=== PATIENT | male | born 1945 | race Caucasian/White ===

== ENCOUNTER 2017-12-18 05:30 | Inpatient (IN) | payer MEDICARE, OTHER ==
[2017-12-10 14:20] LABS: BASOPHILS % (AUTO) 0.5 % (0-1); EOSINOPHILS # (AUTO) 0.2 X10'3 (0-0.9); EOSINOPHILS % (AUTO) 2.8 % (0-6); LYMPHOCYTES # (AUTO) 1.5 X10'3 (1.1-4.8); LYMPHOCYTES % (AUTO) 19.5 % (21-51); MEAN CORPUSCULAR HEMOGLOBIN 32.6 PG (27.0-31.0); MEAN CORPUSCULAR HGB CONC 33.5 % (33.0-36.5); MEAN CORPUSCULAR VOLUME 97.3 FL (78-98); MEAN PLATELET VOLUME 8.1 FL (7.4-10.4); MONOCYTES # (AUTO) 0.6 X10'3 (0-0.9); NEUTROPHILS # (AUTO) 5.3 X10'3 (1.8-7.7); NEUTROPHILS % (AUTO) 69.2 % (42-75); PRE OP HEMATOCRIT 45.6 % (42.0-52.0); PRE OP HEMOGLOBIN 15.3 g/dL (14.0-17.9); PRE OP PLATELET COUNT 160 X10'3 (140-440); RED BLOOD COUNT 4.68 X10'6 (4.70-6.10); RED CELL DISTRIBUTION WIDTH 14.4 % (11.5-14.5)
[2017-12-10 14:22] LABS: CLARITY,URINE CLEAR (Clear); COLOR,URINE YELLOW (Yellow); GLUCOSE, URINE NEGATIVE (Neg); KETONES,URINE NEGATIVE (Neg); LEUKOCYTE ESTERASE ,URINE NEGATIVE (Neg); NITRITES, URINE NEGATIVE (Neg); OCCULT BLOOD,URINE NEGATIVE (Neg); PH,URINE 5.5 (4.8-8.0); PROTEIN,URINE NEGATIVE (Neg); UROBILINOGEN,URINE 0.2 E.U/dL (0.2-1.0)
[2017-12-10 14:24] LABS: UA COLLECTION TYPE CLN CATCH MIDSTREAM
[2017-12-10 14:31] LABS: PRE OP INR 1.1 INR; PRE OP PROTIME 11.2 SECONDS (9.0-12.0)
[2017-12-10 14:43] LABS: ALBUMIN 3.4 G/DL (3.4-5.0); ALBUMIN/GLOBULIN RATIO 1.1 (1.1-1.5); ALKALINE PHOSPHATASE 47 IU/L (46-116); BLOOD UREA NITROGEN 18 MG/DL (7-18); BUN/CREATININE RATIO 14.5 (5.4-32.0); CALCIUM 8.7 MG/DL (8.5-10.1); CHLORIDE 107 MMOL/L (99-107); CREATININE 1.24 MG/DL (0.60-1.10); PRE OP ALT 23 U/L (30-65); PRE OP ANION GAP 5 (8-16); PRE OP AST 10 U/L (10-37); PRE OP BILIRUB, TOTAL 0.4 MG/DL (0.0-1.0); PRE OP GLUCOSE 102 MG/DL (70-104); PRE OP POTASSIUM 3.7 MMOL/L (3.4-5.1); PRE OP SODIUM 138 MMOL/L (135-145); TOTAL CARBON DIOXIDE 26.5 MMOL/L (24-32); TOTAL PROTEIN 6.5 G/DL (6.4-8.2); eGFR 58 ML/MIN
[2017-12-18] VITALS (18 sets, daily range): BP systolic 119–155; BP diastolic 68–102
[~2017-12-18] VITALS: Ht 188 cm; Wt 133.8 kg
[~2017-12-18 05:30] MED LIST: ALPR-624 PO; CHOL10002 PO; DABI150C PO; DOCUMENT DATE & TIME OF BETA-BLOCKER PO ONE; FLUO20CA39 PO; LISI40TA4 PO; LOP25T PO; NIAC1CAP PO; PRAZ5CAP2 PO; SYN0.0125T PO; TRAZ-218 PO; ZOLP10TA5 PO; ceFAZolin inj. 3,000 MG in normal saline 100ml IV soln 100 ML IV ONE; famotidine 20mg tablet PO ONE; ringers solution, lacted 1,000 ML IV SCH; vancomycin inj 1,500 MG in normal saline 300ml IV soln IV ONE
[2017-12-18] MEDS ORDERED: LIDOcaine 1% (10mg/ml) 2ml vial ONE (05:52)
[2017-12-18] MEDS ORDERED: vancomycin 1,000mg inj ONE (06:51)
[2017-12-18] MEDS ORDERED: ketorolac trometh. 30mg/ml inj. ONE (06:51)
[2017-12-18] MEDS ORDERED: ROPIVAcaine 0.5% (5mg/ml) 30ml vial ONE ×3 (06:52→12:21)
[2017-12-18] MEDS ORDERED: TRANEXAMIC ACID IV ONE ×4 (07:35)
[2017-12-18] MEDS ORDERED: NORMAL SALINE IV ONE ×4 (07:35)
[2017-12-18] MEDS ORDERED: cloNIDine hcl/PF 100mcg/ml inj ONE (08:56)
[2017-12-18] MEDS ORDERED: fentaNYL/PF 50MCG/1 ML 2ML syringe ONE (09:05)
[2017-12-18] MEDS ORDERED: sevoflurane 250ml liquid IH ONE (09:06)
[2017-12-18] MEDS ORDERED: MIDAZolam 5mg/5ml vial ONE (09:06)
[2017-12-18] MEDS ORDERED: propofol inj 20 ML IV ONE (09:28)
[2017-12-18] MEDS ORDERED: dexamethasone sod phosphate 4mg/ml inj. ONE (09:28)
[2017-12-18] MEDS ORDERED: ringers solution, lacted 1,000 ML IV SCH (09:37)
[2017-12-18] MEDS ORDERED: meperidine/PF 25mg/ml syringe IV PRN ×3 (09:40)
[2017-12-18] MEDS ORDERED: proCHLORperazine 10 MG/2 ml inj IV PRN (09:40)
[2017-12-18] MEDS ORDERED: ondansetron/PF 4mg/2ml inj IV PRN ×2 (09:40→11:15)
[2017-12-18] MEDS ORDERED: morphine 4 MG/ML inj SYRINge IV PRN ×2 (09:40)
[2017-12-18] MEDS ORDERED: ondansetron/PF 4mg/2ml inj ONE (11:04)
[2017-12-18] MEDS ORDERED: HYDROmorphone inj. 0.5 MG/0.5 ML DISP.SYRIN IV PRN ×2 (11:15)
[2017-12-18] MEDS ORDERED: acetaminophen 325mg tablet PO PRN (11:15)
[2017-12-18] MEDS ORDERED: magnesium hydroxide 30ml (MOM) UD suspension PO PRN (11:15)
[2017-12-18] MEDS ORDERED: diphenhydrAMINE 25mg capsule PO PRN ×2 (11:15)
[2017-12-18] MEDS ORDERED: oxyCODONE IR 5mg (immed. release) tablet PO PRN ×2 (11:15)
[2017-12-18] MEDS ORDERED: bisacodyl 10mg suppository rectal RC PRN (11:15)
[2017-12-18] MEDS: gabapentin 300mg capsule PO SCH ×2 (13:00→21:00)
[2017-12-18] MEDS: ALPRAZolam 0.5mg tablet PO SCH ×2 (13:00→21:42)
[2017-12-18] MEDS: ketorolac tromethamine 15mg/ml inj. IV SCH ×2 (13:33→19:43)
[2017-12-18] MEDS: acetaminophen 325mg tablet PO SCH ×2 (13:33→19:43)
[2017-12-18] MEDS: ceFAZolin 1GM/D5W- ADD-VANTAGE 50 ML IV SCH ×2 (15:52→23:49)
[2017-12-18] MEDS: potassium cl 20mEq in 1/2 NS 1,000 ML IV SCH ×2 (15:52→19:12)
[2017-12-18] MEDS: dabigatran 150mg capsule PO SCH (19:43)
[2017-12-18] MEDS: metoprolol tartrate 25mg tablet PO SCH (19:44)
[2017-12-18] MEDS ORDERED: vancomycin/NS 1 GM ADD-VANTAGE 250 ML IV SCH (20:00)
[2017-12-18] MEDS ORDERED: prazosin 1mg capsule PO SCH (21:00)
[2017-12-18] MEDS ORDERED: traZODone 50mg tablet PO SCH (21:00)
[2017-12-18] MEDS ORDERED: sennosides 8.6mg tablet PO SCH (21:00)
[2017-12-18] MEDS ORDERED: zolpidem 5mg tablet PO SCH (21:00)
[2017-12-18] MEDS ORDERED: FLUoxetine 20mg capsule PO SCH (21:00)
[2017-12-19 02:00] VITALS: BP 117/70
[2017-12-19] MEDS: acetaminophen 325mg tablet PO SCH ×2 (02:30→07:35)
[2017-12-19] MEDS: ketorolac tromethamine 15mg/ml inj. IV SCH ×2 (02:30→07:34)
[2017-12-19] MEDS: potassium cl 20mEq in 1/2 NS 1,000 ML IV SCH ×2 (03:56→11:12)
[2017-12-19 07:02] LABS: BASOPHILS % (AUTO) 0.1 % (0-1); EOSINOPHILS # (AUTO) 0.1 X10'3 (0-0.9); HEMATOCRIT 40.2 % (42.0-52.0); HEMOGLOBIN 13.4 g/dl (14.0-17.9); LYMPHOCYTES # (AUTO) 0.6 X10'3 (1.1-4.8); LYMPHOCYTES % (AUTO) 4.9 % (21-51); MEAN CORPUSCULAR HEMOGLOBIN 32.7 PG (27.0-31.0); MEAN CORPUSCULAR HGB CONC 33.4 % (33.0-36.5); MEAN CORPUSCULAR VOLUME 97.7 FL (78-98); MEAN PLATELET VOLUME 8.9 FL (7.4-10.4); MONOCYTES # (AUTO) 0.9 X10'3 (0-0.9); MONOCYTES % (AUTO) 7.5 % (2-12); NEUTROPHILS % (AUTO) 86.5 % (42-75); PLATELET COUNT 139 X10'3 (140-440); RED BLOOD COUNT 4.11 X10'6 (4.70-6.10); RED CELL DISTRIBUTION WIDTH 14.5 % (11.5-14.5); WHITE BLOOD COUNT 11.6 X10'3 (4.5-11.0)
[2017-12-19] MEDS: dabigatran 150mg capsule PO SCH (07:34)
[2017-12-19] MEDS: ALPRAZolam 0.5mg tablet PO SCH (07:34)
[2017-12-19] MEDS: metoprolol tartrate 25mg tablet PO SCH (07:34)
[2017-12-19] MEDS: gabapentin 300mg capsule PO SCH (07:35)
[2017-12-19] MEDS ORDERED: lisinopril 20mg tablet PO SCH (08:00)
[2017-12-19] MEDS ORDERED: vitamin D (cholecalciferol) 1,000 unit tablet PO SCH (08:00)
[2017-12-19] MEDS ORDERED: levoTHYROXINE 125mcg tablet PO SCH (08:00)
[2017-12-19 08:12] LABS: ANION GAP 10 (8-16); CHLORIDE 103 MMOL/L (99-107); POTASSIUM 4.1 MMOL/L (3.5-5.1); SODIUM 135 MMOL/L (135-145)
[2017-12-19] MEDS ORDERED: celeCOXIB 100mg capsule PO SCH (20:00)
[2017-12-20] MEDS ORDERED: acetaminophen 325mg tablet PO PRN (11:15)
== END 2017-12-19 11:50 | disposition home or self-care (01) | DRG 483 ==
LOC: PAS IN 05:30 → EDSTATUS 08:30 → ORTHO 4S 12:15
PROVIDERS: ADMIT Orthopaedic Surgery; ATTEND Orthopaedic Surgery
PROC: 0LS30ZZ Reposition Right Upper Arm Tendon, Open Approach (ICD-10-PCS; 2017-12-18)
PROC: 3E0T3BZ Introduction of Anesthetic Agent into Peripheral Nerves and Plexi, Percutaneous Approach (ICD-10-PCS; 2017-12-18)
PROC: 0RRJ00Z Replacement of Right Shoulder Joint with Reverse Ball and Socket Synthetic Substitute, Open Approach (ICD-10-PCS; principal; 2017-12-18 09:06)
DX: M19.011 Primary osteoarthritis, right shoulder (principal); D62 Acute posthemorrhagic anemia; M75.41 Impingement syndrome of right shoulder; E03.9 Hypothyroidism, unspecified; F41.9 Anxiety disorder, unspecified; I10 Essential (primary) hypertension; I48.91 Unspecified atrial fibrillation; M75.121 Complete rotator cuff tear or rupture of right shoulder, not specified as traumatic; F32.9 Major depressive disorder, single episode, unspecified; M65.9 Synovitis and tenosynovitis, unspecified; E66.01 Morbid (severe) obesity due to excess calories; Z95.0 Presence of cardiac pacemaker; Z79.899 Other long term (current) drug therapy; Z68.37 Body mass index [BMI] 37.0-37.9, adult
CPT/HCPCS: 36415; 80051; 80053; 81003; 84443; 85025; 85610; 85730; 87070; 88304; 93005; 97116; 97162; 97530; A4565; A7000; J0690; J0735; J1100; J1885; J2250; J2405; J2704; J2795; J3010; J3370; J3490; J7030; J7040; J7120

== ENCOUNTER 2018-08-13 05:10 | Inpatient (IN) | payer MEDICARE, OTHER ==
[2018-08-05 17:09] LABS: BASOPHILS # (AUTO) 0.1 X10'3 (0-0.2); EOSINOPHILS # (AUTO) 0.2 X10'3 (0-0.9); EOSINOPHILS % (AUTO) 2.3 % (0-6); LYMPHOCYTES # (AUTO) 1.4 X10'3 (1.1-4.8); LYMPHOCYTES % (AUTO) 18.8 % (21-51); MEAN CORPUSCULAR HEMOGLOBIN 32.7 PG (27.0-31.0); MEAN CORPUSCULAR HGB CONC 33.7 g/dL (33.0-36.5); MEAN CORPUSCULAR VOLUME 97.1 FL (78-98); MEAN PLATELET VOLUME 9.3 FL (7.4-10.4); MONOCYTES # (AUTO) 0.7 X10'3 (0-0.9); MONOCYTES % (AUTO) 9.2 % (2-12); NEUTROPHILS # (AUTO) 5.1 X10'3 (1.8-7.7); NEUTROPHILS % (AUTO) 68.7 % (42-75); PRE OP HEMATOCRIT 44.1 % (42.0-52.0); PRE OP HEMOGLOBIN 14.8 g/dL (14.0-17.9); PRE OP PLATELET COUNT 169 X10'3 (140-440); RED BLOOD COUNT 4.54 X10'6 (4.70-6.10); RED CELL DISTRIBUTION WIDTH 14.4 % (11.5-14.5)
[2018-08-05 17:23] LABS: ALBUMIN 3.6 G/DL (3.4-5.0); ALBUMIN/GLOBULIN RATIO 1.1 (1.1-1.5); ALKALINE PHOSPHATASE 62 IU/L (46-116); BLOOD UREA NITROGEN 21 MG/DL (7-18); BUN/CREATININE RATIO 23.3 (5.4-32.0); CALCIUM 9.2 MG/DL (8.5-10.1); CHLORIDE 106 MMOL/L (99-107); PRE OP ALT 24 U/L (30-65); PRE OP ANION GAP 8 (8-16); PRE OP AST 15 U/L (10-37); PRE OP BILIRUB, TOTAL 0.3 MG/DL (0.0-1.0); PRE OP GLUCOSE 96 MG/DL (70-104); PRE OP POTASSIUM 3.9 MMOL/L (3.4-5.1); PRE OP SODIUM 140 MMOL/L (135-145); TOTAL CARBON DIOXIDE 26.3 MMOL/L (24-32); TOTAL PROTEIN 6.9 G/DL (6.4-8.2); eGFR 83 ML/MIN
[2018-08-05 17:31] LABS: PRE OP INR 1.1 INR; PRE OP PROTIME 11.2 SECONDS (9.0-12.0)
[2018-08-13] VITALS (17 sets, daily range): BP systolic 100–184; BP diastolic 63–139
[~2018-08-13] VITALS: Ht 188 cm; Wt 131.5 kg
[~2018-08-13 05:10] MED LIST changes: +AMLO10TA PO; +CYAN100097 PO; -DOCUMENT DATE & TIME OF BETA-BLOCKER PO ONE; -ceFAZolin inj. 3,000 MG in normal saline 100ml IV soln 100 ML IV ONE; -famotidine 20mg tablet PO ONE; -vancomycin inj 1,500 MG in normal saline 300ml IV soln IV ONE
[2018-08-13] MEDS ORDERED: DOCUMENT DATE & TIME OF BETA-BLOCKER PO ONE (05:30)
[2018-08-13] MEDS ORDERED: vancomycin inj 1,500 MG in normal saline 300ml IV soln IV ONE (05:30)
[2018-08-13] MEDS ORDERED: famotidine 20mg tablet PO ONE (05:30)
[2018-08-13] MEDS ORDERED: ceFAZolin inj. 3,000 MG in normal saline 100ml IV soln 100 ML IV ONE (05:30)
[2018-08-13] MEDS ORDERED: LIDOcaine 1% (10mg/ml) 2ml vial ONE (05:56)
[2018-08-13] MEDS ORDERED: ROPIVAcaine inj 200 MG, ketorolac tromethamine inj. 15 MG in normal saline 100ml IV sol... IU ONE (07:00)
[2018-08-13] MEDS ORDERED: NORMAL SALINE IV ONE ×6 (07:10→08:00)
[2018-08-13] MEDS ORDERED: TRANEXAMIC ACID IV ONE ×6 (07:10→08:00)
[2018-08-13] MEDS ORDERED: LIDOcaine 2% (20mg/ml) 5ml vial ONE ×2 (07:19→07:22)
[2018-08-13] MEDS ORDERED: propofol inj 20 ML IV ONE (07:19)
[2018-08-13] MEDS ORDERED: succinylcholine 20mg/ml inj IV ONE (07:19)
[2018-08-13] MEDS ORDERED: fentaNYL /PF 50mcg/ml 5ml ampule ONE (07:19)
[2018-08-13] MEDS ORDERED: sevoflurane 250ml liquid IH ONE (07:22)
[2018-08-13] MEDS ORDERED: ringers solution, lacted 1,000 ML IV SCH (08:20)
[2018-08-13] MEDS ORDERED: ROPIVAcaine 0.2%/PF PAIN PUMP 550 ML IJ SCH (08:20)
[2018-08-13] MEDS ORDERED: morphine 4 MG/ML inj SYRINge IV PRN ×2 (08:20)
[2018-08-13] MEDS ORDERED: HYDROmorphone inj. 0.5 MG/0.5 ML DISP.SYRIN IV PRN ×3 (08:20→09:50)
[2018-08-13] MEDS ORDERED: ondansetron/PF 4mg/2ml inj IV PRN ×2 (08:20→09:50)
[2018-08-13] MEDS ORDERED: diphenhydrAMINE 25mg capsule PO PRN ×2 (09:50)
[2018-08-13] MEDS ORDERED: oxyCODONE IR 5mg (immed. release) tablet PO PRN ×2 (09:50)
[2018-08-13] MEDS ORDERED: bisacodyl 10mg suppository rectal RC PRN (09:50)
[2018-08-13] MEDS ORDERED: HYDROmorphone 1 mg/ml syringe IV PRN (09:50)
[2018-08-13] MEDS ORDERED: magnesium hydroxide 30ml (MOM) UD suspension PO PRN (09:50)
[2018-08-13] MEDS ORDERED: acetaminophen 325mg tablet PO PRN (09:50)
[2018-08-13] MEDS ORDERED: zolpidem 5mg tablet PO PRN (10:10)
[2018-08-13] MEDS ORDERED: morphine 10mg/ml inj. ONE (10:15)
--- NOTE | 2018-08-13 10:20 | NUR ---
Received from OR via BED, accompanied by Anesthesiologist ELOINA and report given by Anesthesiolgist. PT DROWSY, OXYENATING WELL ON 10 LPM O2 VIA MASK, NO RESP DISTRESS NOTED. NO C/O NAUSEA, VERY MILD KNEE PAIN. 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 CANDI DSG TO RLE, KNEE WRAP AMD POWDER PACK IN PLACE. PEDAL PULSES PALPABLE. NO FLOEY, SCDS ON. VSS.
[2018-08-13] MEDS ORDERED: ondansetron/PF 4mg/2ml inj ONE (10:42)
[2018-08-13] MEDS ORDERED: glycopyrrolate 0.2mg/ml inj ONE (10:42)
[2018-08-13] MEDS ORDERED: rocuronium 10mg/ml inj IV ONE (10:42)
[2018-08-13] MEDS ORDERED: dexamethasone sod phosphate 4mg/ml inj. ONE (10:42)
[2018-08-13] MEDS ORDERED: neostigmine methylsulfate 1 MG/ML 10ml vial ONE (10:42)
[2018-08-13] MEDS ORDERED: ROPIVAcaine 0.5% (5mg/ml) 30ml vial ONE (10:42)
--- NOTE | 2018-08-13 11:50 | NUR ---
Report called to receiving nurse. Transferred via BED Belongings WITH PT. B HEARING AIDES IN EARS, 1 BAG OF CLOTHING. PT STILL HAS LITTLE TO NO C/O PAIN AT TIME OF TRANSFER, MOVING BOTH LOWER EXTREMITIES WELL. VSS. TOLERATING PO FLUIDS WELL. SPOKE WITH THE REP FOR PT PPM, THE BACK UP RATE IS SET FOR 40. IT IS FUNCTIONING IT SHOULD. PT TRANSFERRED TO ORTHO FLOOR IN STABLE CONDITION. Special Issues communicated to receiving nurse.
[2018-08-13] MEDS ORDERED: tranexamic acid inj. 1,300 MG in normal saline 100ml IV soln 100 ML IV ONE (13:03)
[2018-08-13] MEDS ORDERED: acetaminophen 325mg tablet PO SCH (14:00)
[2018-08-13] MEDS: ceFAZolin 1GM/D5W- ADD-VANTAGE 50 ML IV SCH (15:53)
[2018-08-13] MEDS: potassium cl 20mEq in 1/2 NS 1,000 ML IV SCH (15:55)
[2018-08-13] MEDS ORDERED: lisinopril 20mg tablet PO ONE (16:10)
[2018-08-13] MEDS ORDERED: amLODIPine 5mg tablet PO ONE (16:10)
--- NOTE | 2018-08-13 16:13 | NUR ---
I talked to Dr. Torres and he okayed to give patient his morning BP meds he missed for high BP 184/100. Okay to DC Tylenol patient said he can't take it.
--- NOTE | 2018-08-13 18:35 | NUR ---
Patient report given to Luis MICHAEL
--- NOTE | 2018-08-13 19:00 | NUR ---
Patient in room ORTHO 4024. I have received report from Dana MICHAEL and had the opportunity to ask questions and assume patient care.
[2018-08-13] MEDS ORDERED: vancomycin/NS 1 GM ADD-VANTAGE 250 ML IV SCH (20:00)
[2018-08-13] MEDS: metoprolol tartrate 25mg tablet PO SCH (20:11)
[2018-08-13] MEDS: dabigatran 150mg capsule PO SCH (20:12)
[2018-08-13] MEDS: ALPRAZolam 0.5mg tablet PO SCH (20:13)
[2018-08-13] MEDS ORDERED: prazosin 5mg capsule PO SCH (21:00)
[2018-08-13] MEDS ORDERED: FLUoxetine 20mg capsule PO SCH (21:00)
[2018-08-13] MEDS ORDERED: traZODone 50mg tablet PO SCH (21:00)
[2018-08-13] MEDS ORDERED: sennosides 8.6mg tablet PO SCH (21:00)
[2018-08-14] MEDS: potassium cl 20mEq in 1/2 NS 1,000 ML IV SCH ×3 (00:45→07:35)
[2018-08-14] MEDS: ceFAZolin 1GM/D5W- ADD-VANTAGE 50 ML IV SCH (00:45)
[2018-08-14 03:00] VITALS: BP 109/61
--- NOTE | 2018-08-14 05:31 | NUR ---
Pt offered pain medication for morning physical therapy, Pt was adamant that he did not need it.
[2018-08-14 06:00] VITALS: BP 122/75
[2018-08-14 06:15] LABS: BASOPHILS % (AUTO) 0.2 % (0-1); EOSINOPHILS % (AUTO) 0.2 % (0-6); HEMATOCRIT 39.6 % (42.0-52.0); HEMOGLOBIN 13.4 g/dl (14.0-17.9); LYMPHOCYTES # (AUTO) 0.9 X10'3 (1.1-4.8); LYMPHOCYTES % (AUTO) 8.6 % (21-51); MEAN CORPUSCULAR HEMOGLOBIN 32.8 PG (27.0-31.0); MEAN CORPUSCULAR HGB CONC 33.8 g/dL (33.0-36.5); MEAN CORPUSCULAR VOLUME 97.2 FL (78-98); MEAN PLATELET VOLUME 9.2 FL (7.4-10.4); MONOCYTES # (AUTO) 1.2 X10'3 (0-0.9); MONOCYTES % (AUTO) 11.6 % (2-12); NEUTROPHILS # (AUTO) 8.1 X10'3 (1.8-7.7); NEUTROPHILS % (AUTO) 79.4 % (42-75); PLATELET COUNT 155 X10'3 (140-440); RED BLOOD COUNT 4.07 X10'6 (4.70-6.10); RED CELL DISTRIBUTION WIDTH 13.8 % (11.5-14.5); WHITE BLOOD COUNT 10.2 X10'3 (4.5-11.0)
[2018-08-14 06:38] LABS: ANION GAP 9 (8-16); CHLORIDE 105 MMOL/L (99-107); POTASSIUM 3.9 MMOL/L (3.5-5.1); SODIUM 138 MMOL/L (135-145); TOTAL CARBON DIOXIDE 23.7 MMOL/L (24-32)
--- NOTE | 2018-08-14 06:44 | NUR ---
RECEIVED REPORT FROM FERNANDA ENGLAND
[2018-08-14] MEDS ORDERED: levoTHYROXINE 100mcg tablet PO SCH (07:00)
[2018-08-14] MEDS: metoprolol tartrate 25mg tablet PO SCH (07:32)
[2018-08-14] MEDS: ALPRAZolam 0.5mg tablet PO SCH (07:34)
[2018-08-14] MEDS: dabigatran 150mg capsule PO SCH (07:34)
[2018-08-14] MEDS ORDERED: lisinopril 20mg tablet PO SCH (08:00)
[2018-08-14] MEDS ORDERED: vitamin D (cholecalciferol) 1,000 unit tablet PO SCH (08:00)
[2018-08-14] MEDS ORDERED: FLUoxetine 20mg capsule PO SCH (08:00)
[2018-08-14] MEDS ORDERED: cyanocobalamin 500mcg tablet PO SCH (08:00)
[2018-08-14] MEDS ORDERED: amLODIPine 5mg tablet PO SCH (08:00)
[2018-08-14] MEDS ORDERED: aspirin 325mg tablet PO SCH (08:30)
[2018-08-14 10:36] VITALS: BP 129/81
--- NOTE | 2018-08-14 13:00 | NUR ---
I spoke with Dr. Torres okay to discharge patient he is having anxiety related to ptsd, he is stable with physical therapy. Dr. Torres said okay to resume pradaxa, no aspirin needed. Patient taught all discharges instructions and he has pain meds and walker at home. Patient rolled out in wheel chair.
[2018-08-14] MEDS ORDERED: celeCOXIB 100mg capsule PO SCH (20:00)
[2018-08-15] MEDS ORDERED: acetaminophen 325mg tablet PO PRN (09:50)
== END 2018-08-14 13:00 | disposition home or self-care (01) | DRG 470 ==
LOC: PAS IN 05:10 → EDSTATUS 07:30 → ORTHO 4S 12:06
PROVIDERS: ADMIT Orthopaedic Surgery; ATTEND Orthopaedic Surgery
PROC: 8E0Y0CZ Robotic Assisted Procedure of Lower Extremity, Open Approach (ICD-10-PCS; 2018-08-13)
PROC: 8E0YXBZ Computer Assisted Procedure of Lower Extremity (ICD-10-PCS; 2018-08-13)
PROC: 3E0T3BZ Introduction of Anesthetic Agent into Peripheral Nerves and Plexi, Percutaneous Approach (ICD-10-PCS; 2018-08-13)
PROC: 0SRC0J9 Replacement of Right Knee Joint with Synthetic Substitute, Cemented, Open Approach (ICD-10-PCS; principal; 2018-08-13 07:22)
DX: M17.11 Unilateral primary osteoarthritis, right knee (principal); D62 Acute posthemorrhagic anemia; E03.9 Hypothyroidism, unspecified; I10 Essential (primary) hypertension; I48.91 Unspecified atrial fibrillation; F32.9 Major depressive disorder, single episode, unspecified; G47.33 Obstructive sleep apnea (adult) (pediatric)
CPT/HCPCS: 36415; 80051; 80053; 82948; 84443; 85025; 85610; 85730; 87070; 93005; 97110; 97116; 97161; A6455; A7000; C1713; C1776; G0378; J0330; J0690; J1100; J2001; J2270; J2405; J2704; J2710; J2795; J3010; J3370; J3420; J3490; J7030; J7120

== ENCOUNTER 2024-03-14 09:13 | Inpatient (IN) | payer OTHER, MEDICARE ==
[2024-03-07 14:39] LABS: BASOPHILS # (AUTO) 0.1 X10'3 (0-0.2); BASOPHILS % (AUTO) 0.6 % (0-1); EOSINOPHILS # (AUTO) 0.2 X10'3 (0-0.9); EOSINOPHILS % (AUTO) 1.9 % (0-6); LYMPHOCYTES # (AUTO) 1.7 X10'3 (1.1-4.8); LYMPHOCYTES % (AUTO) 14.3 % (21-51); MEAN CORPUSCULAR HEMOGLOBIN 32.4 PG (27.0-31.0); MEAN CORPUSCULAR HGB CONC 32.4 g/dL (33.0-36.5); MEAN CORPUSCULAR VOLUME 99.9 FL (78-98); MEAN PLATELET VOLUME 7.6 FL (7.4-10.4); MONOCYTES % (AUTO) 8.4 % (2-12); NEUTROPHILS # (AUTO) 9.1 X10'3 (1.8-7.7); NEUTROPHILS % (AUTO) 74.8 % (42-75); PRE OP HEMATOCRIT 42.8 % (42.0-52.0); PRE OP HEMOGLOBIN 13.9 g/dL (14.0-17.9); PRE OP PLATELET COUNT 176 X10'3 (140-440); PRE OP WHITE BLOOD COUNT 12.1 10'3 (4.8-10.8); RED BLOOD COUNT 4.28 X10'6 (4.70-6.10); RED CELL DISTRIBUTION WIDTH 14.8 % (11.5-14.5)
[2024-03-07 15:04] LABS: ALBUMIN/GLOBULIN RATIO 0.8 (1.1-1.5); ALKALINE PHOSPHATASE 82 IU/L (46-116); BLOOD UREA NITROGEN 14 MG/DL (7-18); BUN/CREATININE RATIO 14.9 (10.0-20.0); CALCIUM 9.1 MG/DL (8.5-10.1); CHLORIDE 107 MMOL/L (99-107); CREATININE 0.94 MG/DL (0.60-1.10); PRE OP ALT 28 U/L (30-65); PRE OP ANION GAP 7 (8-16); PRE OP AST 15 U/L (10-37); PRE OP BILIRUB, TOTAL 0.4 MG/DL (0.0-1.0); PRE OP GLUCOSE 85 MG/DL (70-104); PRE OP POTASSIUM 3.9 MMOL/L (3.4-5.1); PRE OP SODIUM 142 MMOL/L (135-145); THYROID STIMULATING HORMONE 0.07 ulU/ml (0.34-4.50); TOTAL CARBON DIOXIDE 28.2 MMOL/L (24-32); TOTAL PROTEIN 6.9 G/DL (6.4-8.2); eGFR 78 ML/MIN
[~2024-03-14] VITALS: Ht 188 cm; Wt 160.6 kg
[2024-03-14] VITALS (20 sets, daily range): BP systolic 89–144; BP diastolic 50–80; PULSE 67–99; RESP 10–19; TEMP 97.3–98.8; O2SAT 89–98
[2024-03-14] MEDS: DOCUMENT DATE & TIME OF BETA-BLOCKER PO ONE (05:30)
[2024-03-14] MEDS: Cefazolin 3 GM/100ML NS IVPB 100 ML IV ONE (05:30)
[~2024-03-14 09:13] MED LIST changes: -ALPR-624 PO; +BUSP10TA11 PO; +CALCIUM/VIT D PO; -CHOL10002 PO; +CHOL10008 PO; +CYAN-34 PO; -CYAN100097 PO; +FOLI1TAB27 PO; +FURO20TA4 PO; +LEVO100T PO; +LEVO112C4 PO; -LISI40TA4 PO; -LOP25T PO; +METO50TA17 PO; +MIRT-142 PO; -NIAC1CAP PO; -SYN0.0125T PO; +TIRZ5PEN3 SQ; -TRAZ-218 PO; +TRAZ-251 PO; -ZOLP10TA5 PO; -ringers solution, lacted 1,000 ML IV SCH; +vancomycin 1,500 MG in NS 300ml IV soln IV ONE
[2024-03-14] MEDS: famotidine 20mg tablet PO ONE (10:54)
[2024-03-14] MEDS: tranexamic acid 650mg tablet PO ONE (10:54)
[2024-03-14] MEDS: VANCOMYCIN 1,500MG in normal saline IV soln 300 ML IV ONE (10:55)
[2024-03-14] MEDS: ringers solution, lacted 1,000 ML IV SCH ×2 (10:55→16:55)
[2024-03-14] MEDS ORDERED: cloNIDine hcl/PF 100mcg/ml inj ONE (12:12)
[2024-03-14] MEDS ORDERED: tetracaine 1% (10mg/ml) pres. free inj. ONE (12:28)
[2024-03-14] MEDS ORDERED: tranexamic acid 100mg/ml inj. ONE (12:38)
[2024-03-14] MEDS ORDERED: ketorolac trometh 30MG/ML vial 30 MG/ML VIAL ONE (12:38)
[2024-03-14] MEDS ORDERED: ROPIVAcaine 0.5% (5mg/ml) 30ml vial ONE ×3 (12:39→17:08)
[2024-03-14] MEDS ORDERED: sevoflurane 250ml liquid IH ONE (13:28)
[2024-03-14] MEDS ORDERED: midazolam 1 mg/ML 2ml injection ONE (13:39)
[2024-03-14] MEDS ORDERED: dexamethasone sod phosphate 4mg/ml inj. ONE (14:28)
[2024-03-14] MEDS ORDERED: LIDOcaine 2% (20mg/ml) 5ml vial ONE (14:28)
[2024-03-14] MEDS ORDERED: fentaNYL /PF 50mcg/ml 5ml ampule ONE (14:28)
[2024-03-14] MEDS ORDERED: propofol inj 20 ML IV ONE (14:28)
[2024-03-14] MEDS ORDERED: 0.9 % SODIUM CHLORIDE 10 ML VIAL ONE ×5 (14:28→17:08)
[2024-03-14] MEDS ORDERED: ePHEDrine 50MG/ML INJ. ONE (14:29)
[2024-03-14] MEDS ORDERED: ondansetron/PF 4mg/2ml inj ONE (14:29)
[2024-03-14] MEDS ORDERED: rocuronium 10mg/ml inj IV ONE (14:36)
[2024-03-14 16:25] LABS: APPEARANCE,SYNOVIAL FLUID CLOUDY; COLOR,SYNOVIAL FLUID YELLOW; LYMPHOCYTES,SYNOVIAL FLUID 98 % (0-75); NEUTROPHILS,SYNOVIAL FLUID 2 % (0-25); SYN RBC 530 /CU MM (0); SYN WBC 215 /CU MM (0-200)
[2024-03-14] MEDS: ROPIVAcaine 0.5% (5mg/ml) 30ml vial IJ ONE (16:54)
[2024-03-14] MEDS ORDERED: labetalol 20mg/4ml (5mg/ml) syringe IV PRN (16:55)
[2024-03-14] MEDS ORDERED: hydrALAZINE 20mg/ml inj. IV PRN (16:55)
[2024-03-14] MEDS ORDERED: meperidine/PF 25mg/ml syringe IV PRN (16:55)
[2024-03-14] MEDS ORDERED: morphine 4 MG/ML inj SYRINge IV PRN (16:55)
[2024-03-14] MEDS ORDERED: ondansetron/PF 4mg/2ml inj IV PRN (16:55)
[2024-03-14] MEDS: acetaminophen 1,000mg/100ml IV 100 ML IV ONE (16:55)
[2024-03-14] MEDS ORDERED: proCHLORperazine 10 MG/2 ml inj IV PRN (16:55)
[2024-03-14] MEDS ORDERED: HYDROmorphone/PF 0.2 MG/ML SYRINGE IV PRN ×2 (16:55)
[2024-03-14] MEDS ORDERED: morphine 2 MG/ML inj. syringe IV PRN (16:55)
[2024-03-14] MEDS ORDERED: morphine 10mg/ml inj. ONE (17:14)
[2024-03-14] MEDS ORDERED: sugammadex 200mg/2ml injection IV ONE (17:25)
[2024-03-14] MEDS ORDERED: furosemide 20MG tablet PO PRN (17:30)
[2024-03-14] MEDS ORDERED: HYDROmorphone inj. 0.5 MG/0.5 ML DISP.SYRIN IV PRN (17:30)
[2024-03-14] MEDS ORDERED: magnesium hydroxide 30ml (MOM) UD suspension PO PRN (17:30)
[2024-03-14] MEDS ORDERED: diphenhydrAMINE 25mg capsule PO PRN ×2 (17:30)
[2024-03-14] MEDS ORDERED: oxyCODONE IR 5mg (immed. release) tablet PO PRN (17:30)
[2024-03-14] MEDS ORDERED: naloxone 0.4 mg/ml inj IV PRN (17:30)
[2024-03-14] MEDS ORDERED: acetaminophen 325mg tablet PO PRN (17:30)
[2024-03-14] MEDS ORDERED: bisacodyl 10mg suppository rectal RC PRN (17:30)
[2024-03-14] MEDS ORDERED: glycopyrrolate 0.2mg/ml inj ONE (17:33)
[2024-03-14] MEDS ORDERED: neostigmine methylsulfate 1 MG/ML 10ml vial ONE (17:33)
[2024-03-14] MEDS: VANCOMYCIN 1GM 200ML H20 (PEG) 200 ML IV SCH (21:23)
[2024-03-14] MEDS: cyanocobalamin 500mcg tablet PO SCH (21:24)
[2024-03-14] MEDS: acetaminophen 325mg tablet PO SCH (21:24)
[2024-03-14] MEDS: busPIRone 5mg tablet PO SCH (21:25)
[2024-03-14] MEDS: metoprolol tartrate 50mg tablet PO SCH (21:25)
[2024-03-14] MEDS: mirtazapine 15mg tablet PO SCH (21:26)
[2024-03-14] MEDS: sennosides 8.6mg tablet PO SCH (21:27)
[2024-03-14] MEDS: traZODone 50mg tablet PO SCH (21:27)
[2024-03-14] MEDS: prazosin 5mg capsule PO SCH (21:32)
[2024-03-14] MEDS: potassium cl 20mEq in 1/2 NS 1,000 ML IV SCH (21:33)
[2024-03-15] VITALS (7 sets, daily range): BP systolic 93–132; BP diastolic 36–78; PULSE 65–83; RESP 13–20; TEMP 97.6–98.9; O2SAT 94–98
[2024-03-15] MEDS: ondansetron/PF 4mg/2ml inj IV PRN (03:11)
[2024-03-15] MEDS: ceFAZolin/D5W- 1GM premix 50 ML IV SCH (03:23)
[2024-03-15] MEDS: HYDROmorphone 1 mg/ml syringe IV PRN (05:33)
[2024-03-15 06:45] LABS: BASOPHILS % (AUTO) 0.1 % (0-1); EOSINOPHILS % (AUTO) 0 % (0-6); HEMATOCRIT 34.2 % (42.0-52.0); HEMOGLOBIN 11.2 g/dl (14.0-17.9); LYMPHOCYTES # (AUTO) 0.4 X10'3 (1.1-4.8); LYMPHOCYTES % (AUTO) 2.8 % (21-51); MEAN CORPUSCULAR HEMOGLOBIN 32.5 PG (27.0-31.0); MEAN CORPUSCULAR HGB CONC 32.7 g/dL (33.0-36.5); MEAN CORPUSCULAR VOLUME 99.4 FL (78-98); MEAN PLATELET VOLUME 7.9 FL (7.4-10.4); MONOCYTES # (AUTO) 0.8 X10'3 (0-0.9); MONOCYTES % (AUTO) 5.4 % (2-12); NEUTROPHILS % (AUTO) 91.7 % (42-75); PLATELET COUNT 166 X10'3 (140-440); RED BLOOD COUNT 3.44 X10'6 (4.70-6.10); RED CELL DISTRIBUTION WIDTH 14.5 % (11.5-14.5); WHITE BLOOD COUNT 14.2 X10'3 (4.5-11.0)
[2024-03-15 06:53] LABS: ANION GAP 3 (8-16); CHLORIDE 105 MMOL/L (99-107); POTASSIUM 4.7 MMOL/L (3.5-5.1); SODIUM 137 MMOL/L (135-145); TOTAL CARBON DIOXIDE 29.5 MMOL/L (24-32)
[2024-03-15] MEDS: levoTHYROXINE 100mcg tablet PO SCH (09:04)
[2024-03-15] MEDS: levoTHYROXINE 112mcg tablet PO SCH (09:06)
[2024-03-15] MEDS: dabigatran 150mg capsule PO SCH (09:07)
[2024-03-15] MEDS: amLODIPine 5mg tablet PO SCH (09:07)
[2024-03-15] MEDS: FLUoxetine 20mg capsule PO SCH (09:08)
[2024-03-15] MEDS: folic acid 1mg tablet PO SCH (09:09)
[2024-03-15] MEDS: aspirin 325mg tablet PO SCH (09:15)
[2024-03-15] MEDS: oxyCODONE IR 5mg (immed. release) tablet PO PRN (18:06)
[2024-03-15] MEDS: celeCOXIB 100mg capsule PO SCH (20:30)
[2024-03-16 06:32] LABS: BASOPHILS % (AUTO) 0.4 % (0-1); EOSINOPHILS # (AUTO) 0.1 X10'3 (0-0.9); EOSINOPHILS % (AUTO) 1.1 % (0-6); HEMATOCRIT 28.9 % (42.0-52.0); HEMOGLOBIN 9.7 g/dl (14.0-17.9); LYMPHOCYTES # (AUTO) 1.3 X10'3 (1.1-4.8); LYMPHOCYTES % (AUTO) 10.6 % (21-51); MEAN CORPUSCULAR HGB CONC 33.4 g/dL (33.0-36.5); MEAN CORPUSCULAR VOLUME 98.7 FL (78-98); MEAN PLATELET VOLUME 8.2 FL (7.4-10.4); MONOCYTES % (AUTO) 8.3 % (2-12); NEUTROPHILS # (AUTO) 9.4 X10'3 (1.8-7.7); NEUTROPHILS % (AUTO) 79.6 % (42-75); PLATELET COUNT 149 X10'3 (140-440); RED BLOOD COUNT 2.93 X10'6 (4.70-6.10); RED CELL DISTRIBUTION WIDTH 14.4 % (11.5-14.5); WHITE BLOOD COUNT 11.8 X10'3 (4.5-11.0)
[2024-03-16 07:48] VITALS: BP 135/60; PULSE 76; RESP 16; TEMP 98.7; O2SAT 96
[2024-03-16 08:49] VITALS: RESP 16; O2SAT 96
[2024-03-16 10:20] VITALS: BP 102/62; PULSE 76; RESP 20; TEMP 98.1; O2SAT 96
[2024-03-16 10:36] VITALS: BP 102/62; PULSE 76; RESP 20; TEMP 98.1; O2SAT 96
[2024-03-16 12:05] VITALS: RESP 14
[2024-03-16] MEDS ORDERED: acetaminophen 325mg tablet PO PRN (18:20)
== END 2024-03-16 16:05 | disposition home health service (06) | DRG 467 ==
LOC: PAS IN 09:13 → ORTHO 4S 19:20
PROVIDERS: ADMIT Orthopaedic Surgery; ATTEND Orthopaedic Surgery
PROC: 0SHC08Z Insertion of Spacer into Right Knee Joint, Open Approach (ICD-10-PCS; 2024-03-14)
PROC: 0SRC0J9 Replacement of Right Knee Joint with Synthetic Substitute, Cemented, Open Approach (ICD-10-PCS; 2024-03-14)
PROC: 0SPC0JZ Removal of Synthetic Substitute from Right Knee Joint, Open Approach (ICD-10-PCS; 2024-03-14)
PROC: 3E0T3BZ Introduction of Anesthetic Agent into Peripheral Nerves and Plexi, Percutaneous Approach (ICD-10-PCS; 2024-03-14)
PROC: 3E0T33Z Introduction of Anti-inflammatory into Peripheral Nerves and Plexi, Percutaneous Approach (ICD-10-PCS; 2024-03-14)
PROC: 0SPC08Z Removal of Spacer from Right Knee Joint, Open Approach (ICD-10-PCS; principal; 2024-03-14 13:28)
DX: T84.53XA Infection and inflammatory reaction due to internal right knee prosthesis, initial encounter (principal); Z68.44 Body mass index [BMI] 60.0-69.9, adult; Y83.8 Other surgical procedures as the cause of abnormal reaction of the patient, or of later complication, without mention of misadventure at the time of the procedure; L91.0 Hypertrophic scar; M17.11 Unilateral primary osteoarthritis, right knee; F41.9 Anxiety disorder, unspecified; F32.A Depression, unspecified; I48.91 Unspecified atrial fibrillation; E66.01 Morbid (severe) obesity due to excess calories; X58.XXXA Exposure to other specified factors, initial encounter; F43.10 Post-traumatic stress disorder, unspecified; E03.9 Hypothyroidism, unspecified; I10 Essential (primary) hypertension; Y92.89 Other specified places as the place of occurrence of the external cause; Z88.5 Allergy status to narcotic agent; Z95.0 Presence of cardiac pacemaker
CPT/HCPCS: 36415; 80051; 80053; 82948; 84443; 85025; 87070; 87075; 87081; 89051; 93005; 97116; 97161; 97530; A4615; A4618; A6212; A6253; A6258; A6449; A6454; A7000; C1713; C1758; C1776; G0378; J0690; J0735; J1100; J1171; J1885; J2003; J2250; J2274; J2405; J2704; J2710; J2795; J3010; J3370; J3372; J3480; J3490; J7030; J7040; J7120